=== PATIENT | male | born 1970 | race Caucasian/White ===

== ENCOUNTER 2018-03-13 17:35 | Observation (INO) | payer SELFPAY ==
[2018-03-13 18:59] LABS: Absolute Monocytes 1.1 K/uL (0.1-1.3); Absolute Neutrophil 8.8 K/uL (1.8-8.0); Basophils % 0.4 % (0-1.3); Eosinophils % 0.9 % (0-4.4); Hematocrit 38.6 % (39.6-49.0); Lymphocytes % 8.7 % (15.3-44.8); MCH 30.2 pg (27.0-35.0); MCV 86.6 fL (80-100); MPV 8.3 fL (7.6-11.3); Monocytes % 9.6 % (3.3-12.3); RBC Red Blood Cell Count 4.45 M/uL (4.33-5.43)
[2018-03-13 19:11] LABS: Potassium 4.2 mEq/L (3.6-5.0)
[2018-03-13] MEDS ORDERED: CLINDAMYCIN 600MG/D5W 600 MG/50 ML BAG IV ONE (19:18)
--- NOTE | 2018-03-13 20:16 | ER ---
Nurse's Notes [facility] Name: Vishal Lyons Age: 47 yrs Sex: Male : 1970 Arrival Date: 03/13/2018 Time: 17:37 Bed 27 Private MD: Diagnosis: Cutaneous abscess of right upper limb;Cutaneous abscess of right hand;Cellulitis of right upper limb Presentation: 03/13 17:44 Presenting complaint: Patient states: I got an insect bite on my right wrist on la1 Tuesday and it is getting worse, large abscess noted with cellulitis. Transition of care: patient was not received from another setting of care. Onset of symptoms was March 13, 2018. Initial Sepsis Screen: Does the patient meet any 2 criteria? No. Patient's initial sepsis screen is negative. Does the patient have a suspected source of infection? Yes:. Care prior to arrival: None. 17:44 Method Of Arrival: Ambulatory la1 17:44 Acuity: CESAR 3 la1 Triage Assessment: 18:00 Bite description: bite sustained to right hand and right wrist is from insect by an kr2 unknown animal, animal information: vaccination(s) is not applicable. General: Appears in no apparent distress. uncomfortable, well developed, well nourished, Behavior is calm, cooperative, appropriate for age. Historical: - Allergies: 17:47 No Known Allergies; la1 - Home Meds: 17:47 methadone 100mg Oral tab daily [Active]; Adderall XR 30 mg Oral cp24 1 cap once daily la1 [Active]; Klonopin 2 mg Oral tab 1 tab QID [Active]; - PMHx: 17:47 Diverticulitis; la1 - PSHx: 17:47 colectomy; la1 - Immunization history:: Adult Immunizations up to date. - Social history:: Smoking status: Patient uses tobacco products, smokes one pack cigarettes per day. Screenin:00 Abuse screen: Denies threats or abuse. Denies injuries from another. Nutritional kr2 screening: No deficits noted. Tuberculosis screening: No symptoms or risk factors identified. Fall Risk None identified. Assessment: 18:00 General: Appears in no apparent distress. comfortable, well developed, well nourished, kr2 Behavior is cooperative, anxious. Pain: Complains of pain in right hand and lateral aspect of right hand and right wrist Pain radiates to right arm Pain currently is 10 out of 10 on a pain scale. Quality of pain is described as aching, Pain began gradually, Is continuous, Alleviated by nothing. Aggravated by repositioning. Neuro: Level of Consciousness is awake, alert, obeys commands, Oriented to person, place, time, situation. Cardiovascular: Capillary refill < 3 seconds in bilateral fingers Patient's skin is warm and dry. Respiratory: Airway is patent Respiratory effort is even, unlabored, Respiratory pattern is regular, symmetrical, Breath sounds are clear bilaterally. GI: Abdomen is flat, non-distended, Bowel sounds present X 4 quads. : No signs and/or symptoms were reported regarding the genitourinary system. EENT: Oral mucosa is moist. Derm: Skin is intact, is healthy with good turgor, Skin is pink, warm \T\ dry. Musculoskeletal: Circulation, motion, and sensation intact. 19:00 Reassessment: Patient appears in no apparent distress at this time. Patient and/or kr2 family updated on plan of care and expected duration. Pain level reassessed. Patient is alert, oriented x 3, equal unlabored respirations, skin warm/dry/pink. 20:00 Reassessment: Patient appears in no apparent distress at this time. Patient and/or kr2 family updated on plan of care and expected duration. Pain level reassessed. Patient is alert, oriented x 3, equal unlabored respirations, skin warm/dry/pink. 21:00 Reassessment: No changes from previously documented assessment. kr2 Vital Signs: 17:47 BP 140 / 90; Pulse 85; Resp 16; Temp 97.9; Pulse Ox 100% on R/A; Weight 86.18 kg; la1 Height 6 ft. 0 in. (182.88 cm); 20:00 BP 121 / 80; Pulse 88; Resp 16; Pulse Ox 99% on R/A; kr2 21:04 BP 122 / 85; Pulse 90; Resp 16; Pulse Ox 99% on R/A; kr2 17:47 Body Mass Index 25.77 (86.18 kg, 182.88 cm) la1 ED Course: 17:37 Patient arrived in ED. as 17:45 Triage completed. la1 17:47 Arm band placed on left wrist. la1 17:51 Amita Gan, [facility] is Primary Nurse. kr2 17:52 Kiarra Moya FNP-C is [facility]. kb 17:52 Trae Seaman MD is Attending Physician. kb 18:00 Patient has correct armband on for positive identification. Pulse ox on. NIBP on. Door kr2 closed. Warm blanket given. Head of bed elevated. 18:07 Patient taken to ultrasound. griffin 18:19 Patient moved back from ultrasound. griffin 18:20 US Extrmty Nonvasular Limited In Process Unspecified. EDMS 18:30 Inserted saline lock: 22 gauge in left antecubital area, using aseptic technique. kr2 ,using aseptic technique. Performed by Pao Mcclellan RN Blood collected. 20:16 Rebeka Haines MD is Hospitalizing Provider. kb 21:09 No provider procedures requiring assistance completed. kr2 21:35 Patient admitted, IV remains in place. kr2 Administered Medications: 19:25 Drug: Clindamycin 600 mg Route: IVPB; Infused Over: 30 mins; Site: left antecubital; kr2 20:00 Follow up: Response: No adverse reaction; IV Status: Completed infusion kr2 Outcome: 20:16 Decision to Hospitalize by Provider. kb 21:35 Admitted to Med/surg accompanied by tech, family with patient, via wheelchair, room kr2 215, with chart, Report called to [facility] Blanco 21:35 Condition: stable 21:35 Instructed on the need for admit, Demonstrated understanding of instructions. 21:35 Discharge instructions given to patient. kr2 22:10 Patient left the ED. kr2 Signatures: Dispatcher [employer] EDOH Kiarra Moya FNP-C [employer] DES[employer]-Jasmina Rodgers Lee, RN RN la1 Dupre, Jacques jd Reaves, Karey, RN RN kr2 Corrections: (The following items were deleted from the chart) 20:33 20:00 Response: No adverse reaction; IV Status: Completed infusion kr2 kr2 22:16 22:13 Condition: stable kr2 kr2 22:16 22:13 Admitted to Med/surg accompanied by tech, family with patient, via wheelchair, kr2 room 215, with chart, Report called to [facility] Blanco kr2 22:16 22:13 Instructed on the need for admit, Demonstrated understanding of instructions, kr2 kr2
--- NOTE | 2018-03-13 20:16 | EDPHYS ---
Physician Documentation [facility] Name: Vishal Lyons Age: 47 yrs Sex: Male : 1970 Arrival Date: 03/13/2018 Time: 17:37 Bed 27 Private MD: ED Physician Trae Seaman HPI: 03/13 18:25 This 47 yrs old Male presents to ER via Ambulatory with complaints of Hand kb Swelling, Insect Bite. 18:27 The patient presents with an abscess of the lateral aspect of right hand and right kb wrist, The patient presents with cellulitis of the right wrist and right hand. Description: erythematous, swollen, warm. Onset: The symptoms/episode began/occurred 6 day(s) ago. Possible cause(s): unknown, possible bug bite. Associated signs and symptoms: Pertinent positives: erythema, swelling, Pertinent negatives: discharge, drainage, foreign body sensation, fever, headache, nausea, shortness of breath, vomiting. Modifying factors: the symptoms are alleviated by nothing, the symptoms are aggravated by pressure, touching. Severity of symptoms: At their worst the symptoms were moderate, in the emergency department the symptoms are unchanged. The patient has not experienced similar symptoms in the past. The patient has not recently seen a physician. Pt states he noticed two small spots on his wrist and hand on Tuesday that itched so he scratched them. The areas started swelling up over the weekend and are worse today. 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 . Historical: - Allergies: 17:47 No Known Allergies; la1 - Home Meds: 17:47 methadone 100mg Oral tab daily [Active]; Adderall XR 30 mg Oral cp24 1 cap once daily la1 [Active]; Klonopin 2 mg Oral tab 1 tab QID [Active]; - PMHx: 17:47 Diverticulitis; la1 - PSHx: 17:47 colectomy; la1 - Immunization history:: Adult Immunizations up to date. - Social history:: Smoking status: Patient uses tobacco products, smokes one pack cigarettes per day. ROS: 18:25 Constitutional: Negative for fever, chills, and weight loss, Cardiovascular: Negative kb for chest pain, palpitations, and edema, Respiratory: Negative for shortness of breath, cough, wheezing, and pleuritic chest pain, Abdomen/GI: Negative for abdominal pain, nausea, vomiting, diarrhea, and constipation, MS/Extremity: Negative for injury and deformity, Neuro: Negative for headache, weakness, numbness, tingling, and seizure. 18:25 Skin: Positive for abscess, cellulitis, erythema, swelling, of the lateral aspect of right hand and right wrist. Exam: 18:25 Constitutional: This is a well developed, well nourished patient who is awake, alert, kb and in no acute distress. Head/Face: Normocephalic, atraumatic. Chest/axilla: Normal chest wall appearance and motion. Nontender with no deformity. No lesions are appreciated. Cardiovascular: Regular rate and rhythm with a normal S1 and S2. No gallops, murmurs, or rubs. Normal PMI, no JVD. No pulse deficits. Respiratory: Lungs have equal breath sounds bilaterally, clear to auscultation and percussion. No rales, rhonchi or wheezes noted. No increased work of breathing, no retractions or nasal flaring. Abdomen/GI: Soft, non-tender, with normal bowel sounds. No distension or tympany. No guarding or rebound. No evidence of tenderness throughout. MS/ Extremity: Pulses equal, no cyanosis. Neurovascular intact. Full, normal range of motion. Neuro: Awake and alert, GCS 15, oriented to person, place, time, and situation. Cranial nerves II-XII grossly intact. Motor strength 5/5 in all extremities. Sensory grossly intact. Cerebellar exam normal. Normal gait. 18:25 Skin: abscess, that is moderate sized, of the lateral aspect of right hand and right wrist, with fluctuance, with induration, with surrounding cellulitis, that is moderate. Vital Signs: 17:47 BP 140 / 90; Pulse 85; Resp 16; Temp 97.9; Pulse Ox 100% on R/A; Weight 86.18 kg; la1 Height 6 ft. 0 in. (182.88 cm); 20:00 BP 121 / 80; Pulse 88; Resp 16; Pulse Ox 99% on R/A; kr2 21:04 BP 122 / 85; Pulse 90; Resp 16; Pulse Ox 99% on R/A; kr2 17:47 Body Mass Index 25.77 (86.18 kg, 182.88 cm) la1 MDM: 17:52 Patient medically screened. kb 18:25 Data reviewed: vital signs, nurses notes. Data interpreted: Pulse oximetry: on room air kb is 100 %. Interpretation: normal. 20:09 Counseling: I had a detailed discussion with the patient and/or guardian regarding: the kb historical points, exam findings, and any diagnostic results supporting the discharge/admit diagnosis, lab results, radiology results, the need for further work-up and treatment in the hospital. Physician consultation: Alvin Eric MD was contacted at 20:10, regarding consult, patient's condition, and will see patient in inpatient room. 20:16 Physician consultation: Rebeka Haines MD was contacted at 20:16, regarding admission, kb to the medical/surgical unit. patient's condition, and will see patient in ED, shortly. 03/13 18:01 Order name: CBC with Diff; Complete Time: 19:07 kb 03/13 18:01 Order name: Basic Metabolic Panel; Complete Time: 19:15 kb 03/13 18:01 Order name: Blood Culture Adult (2) kb 03/13 20:07 Order name: UDS; Complete Time: 21:05 kb 03/13 21:08 Order name: Urine Dipstick--Ancillary (enter results) em1 03/13 21:11 Order name: Urine Dipstick-Ancillary; Complete Time: 21:20 EDMS 03/13 18:01 Order name: IV Start; Complete Time: 19:25 kb 03/13 18:01 Order name: US Extrmty Nonvasular Limited; Complete Time: 20:25 kb 03/13 20:20 Order name: CONS Physician Consult EDMS Administered Medications: 19:25 Drug: Clindamycin 600 mg Route: IVPB; Infused Over: 30 mins; Site: left antecubital; kr2 20:00 Follow up: Response: No adverse reaction; IV Status: Completed infusion kr2 Disposition: 03/14 10:04 Co-signature as Attending Physician, Trae Seaman MD. rn Disposition: 03/13/18 20:16 Hospitalization ordered by Rebeka Haines for Observation. Preliminary diagnosis are Cutaneous abscess of right upper limb, Cutaneous abscess of right hand, Cellulitis of right upper limb. - Bed requested for Telemetry/MedSurg (observation). - Status is Observation. kr2 - Condition is Stable. - Problem is new. - Symptoms are unchanged. UTI on Admission? No Signatures: Dispatcher [employer] EDKiarra Villanueva, Elena Moreno, RN RN Trae Wu MD MD rn Attema, Lee, RN RN la1 Amita Gan RN RN kr2
--- NOTE | 2018-03-13 20:25 | RAD REPORT ---
EXAM DESCRIPTION: US - Extremity Nonvascular Limited - 03/13/2018 6:24 pm CLINICAL HISTORY: Soft tissue swelling, pain, redness COMPARISON: None. FINDINGS: In the area of clinical concern there is a 3.5 x 2.7 x 0.8 centimeter hypoechoic collectio n. Surrounding fatty tissues are edematous. In the acute clinical setting this is most likely an absc ess. Old hematoma is possible but unlikely given the set of clinical findings. IMPRESSION: Approximately 3.5 centimeter abscess is present 4 mm deep to the skin surface at the are a of clinical concern.
[2018-03-13 21:01] LABS: Barbiturates NEGATIVE; Benzodiazepines POSITIVE; Cocaine NEGATIVE; Opiates NEGATIVE; Phencyclidine NEGATIVE; THC Cannibis POSITIVE
[2018-03-13 21:04] LABS: METHAMPHETAM POSITIVE
--- NOTE | 2018-03-13 21:05 | P.HP ---
Certification for Inpatient Patient admitted to: Observation With expected LOS: <2 Midnights Practitioner: I am a practitioner with admitting privileges, knowledge of patient current condition, hospital course, and medical plan of care. 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 He states that about 5 days ago was bitten by an insect in his right hand. After that, his hand got progressively swollen and red associated with severe pain. He denied fever or chills. Lab work remarkable for elevated WBC 11K, no fever. Right hand US shows approximately 3.5 centimeter abscess present 4 mm deep to the skin surface. Drug screen significant for benzodiazepines, amphetamines and THC. Allergies No Known Allergies Allergy (Verified 11/02/12 01:30) Home Medications: Clonazepam [Klonopin] 1 mg PO BID 11/02/12 Methadone HCl [Methadone HCl*] 100 mg PO DAILY 11/02/12 Metoprolol Tartrate [Lopressor] 50 mg PO DAILY 11/02/12 Ciprofloxacin HCl [Cipro] 500 mg PO BID #14 tablet 12/25/12 Hydrocodone 10/APAP 325 [Burns 10/325*] 1 each PO Q6HP PRN #0 tab 12/25/12 Metronidazole [Flagyl] 250 mg PO BID #14 tablet 12/25/12 - Past Medical/Surgical History Diabetic: No -: HTN -: diverticulosis -: hemicolectomy - Family History Family History: Reviewed- Non-Contributory - Social History Smoking Status: Current every day smoker Counseled patient to stop smoking for: less than 10 minutes Smoking therapy provided: Yes Patient receptive to therapy: Yes Alcohol use: Yes CD- Drugs: Yes Caffeine use: No Place of Residence: Home Review of Systems 10-point ROS is otherwise unremarkable Physical Examination - Physical Exam General: Alert, In no apparent distress HEENT: Atraumatic, PERRLA, Mucous membr. moist/pink, EOMI, Sclerae nonicteric Neck: Supple, 2+ carotid pulse no bruit, No LAD, Without JVD or thyroid abnormality Respiratory: Clear to auscultation bilaterally, Normal air movement Cardiovascular: Regular rate/rhythm, Normal S1 S2 Gastrointestinal: Normal bowel sounds, No tenderness Musculoskeletal: No tenderness Integumentary: Tenderness/swelling (right hand), Erythema (right hand), Warmth ( right hand) Neurological: Normal gait, Normal speech, Normal strength at 5/5 x4 extr, Normal tone, Normal affect Lymphatics: No axilla or inguinal lymphadenopathy - Studies Laboratory Data (last 24 hrs) 03/13/18 18:38: Sodium 142, Potassium 4.2, BUN 19, Creatinine 1.05, Glucose 84 03/13/18 18:38: WBC 11.0 H, Hgb 13.5 L, Hct 38.6 L, Plt Count 206 Assessment and Plan - Problems (Diagnosis) (1) Abscess of right hand Current Visit: Yes Status: Acute (2) Cellulitis Current Visit: Yes Status: Acute Qualifiers: Site of cellulitis: extremity Site of cellulitis of extremity: upper extremity Laterality: right Qualified Code(s): L03.113 - Cellulitis of right upper limb (3) HTN (hypertension) Current Visit: Yes Status: Acute Qualifiers: Hypertension type: essential hypertension Qualified Code(s): I10 - Essential (primary) hypertension (4) Tobacco abuse Current Visit: Yes Status: Acute - Plan Mr Lyons will be admitted to the hospital due to right hand cellulitis/ abscess. Dr Eric was consulted and he is planning to do I&D in AM. Will continue with empiric Vancomycin and Zosyn IV. No signs of sepsis at the moment. Will order methadone for pain. - Advance Directives Does patient have a Living Will: No Does patient have a Durable POA for Healthcare: No - Code Status/Comfort Care Code Status Assessed: Yes Code Status: Full Code
[2018-03-13 21:11] LABS: Urine Blood NEGATIVE (NEG); Urine Glucose NEGATIVE (NEG); Urine Protein TRACE (NEG); Urine Specific Gravity >1.030 (1.005-1.030); Urine pH 5.5 (5.0-7.0)
[2018-03-13] MEDS ORDERED: ACETAMINOPHEN 500 MG TAB PO PRN (21:23)
[2018-03-13] MEDS ORDERED: METHADONE HCL 10 MG TAB PO PRN (21:23)
[2018-03-13] MEDS ORDERED: NICOTINE 21 MG/PAT TD PRN (21:23)
[2018-03-13] MEDS ORDERED: ALPRAZOLAM 0.25 MG TABLET PO PRN (21:23)
[2018-03-13] MEDS ORDERED: ONDANSETRON 4 MG/2 ML VIAL IV PRN (21:23)
[2018-03-13] MEDS ORDERED: NA CHLORIDE 0.9% 1,000 ML IV SCH (21:23)
[2018-03-13 21:51] VITALS: BMI 25.2
[2018-03-13] MEDS ORDERED: NA CHLORIDE 0.9% 500 ML ONE (22:18)
[2018-03-13] MEDS ORDERED: VANCOMYCIN 1 GM/VIAL ONE (22:25)
[2018-03-13] MEDS: VANCOMYCIN 1.5 GM in NA CHLORIDE 0.9% 500 ML IVPB SCH (22:53)
[2018-03-13] MEDS: METHADONE HCL 10 MG TAB PO SCH (23:15)
[2018-03-14] MEDS: PIPER/TAZO/NS 3.375gm 3.375 GM/100 ML BAG IVPB SCH ×2 (01:00→08:49)
[2018-03-14] MEDS ORDERED: PIPERACIL/TAZO 3.375 GM VIAL IV ONE (01:49)
[2018-03-14] MEDS ORDERED: NA CHLORIDE 0.9% 100 ML ONE (01:51)
[2018-03-14 05:43] LABS: BUN Blood Urea Nitrogen 12 mg/dL (6-20); Bicarbonate 24 mEq/L (21-31); Glucose Level 89 mg/dL (65-120); Magnesium 1.5 mg/dL (1.8-2.5); Potassium 3.9 mEq/L (3.6-5.0); Sodium Level 136 mEq/L (135-145)
[2018-03-14 06:04] LABS: Absolute Lymphocytes (CBC) 1.4 K/uL (0.7-4.9); Absolute Monocytes 1.7 K/uL (0.1-1.3); Absolute Neutrophil 10.6 K/uL (1.8-8.0); Basophils % 0.3 % (0-1.3); Eosinophils % 0.6 % (0-4.4); Hematocrit 38.2 % (39.6-49.0); MCH 28.6 pg (27.0-35.0); MCV 87.4 fL (80-100); MPV 9.2 fL (7.6-11.3); Monocytes % 12.6 % (3.3-12.3); RBC Red Blood Cell Count 4.36 M/uL (4.33-5.43)
[2018-03-14] MEDS ORDERED: Magnesium Sulfate 2gm IVPB 2 G/50 ML BAG IV ONE (06:21)
[2018-03-14] MEDS ORDERED: KCL 20 MEQ/100 mL IVPB 20 MEQ/100 ML BAG IV SCH (07:00)
[2018-03-14] MEDS ORDERED: MORPHINE 4 MG/ML SYR IV PRN (08:39)
[2018-03-14] MEDS: METHADONE HCL 10 MG TAB PO SCH (09:00)
[2018-03-14] MEDS ORDERED: METHADONE HCL 40 MG DISPERSIBLE TAB PO SCH (09:00)
[2018-03-14] MEDS ORDERED: PROPOFOL 200 MG/20 ML VIAL IV ONE (09:48)
[2018-03-14] MEDS ORDERED: MIDAZOLAM HCL 2 MG/2 ML INJ ONE (09:48)
[2018-03-14] MEDS ORDERED: LIDOCAINE 2% MPF 5 ML VIAL ONE (09:49)
[2018-03-14] MEDS ORDERED: FENTANYL CITR 100 MCG/2 ML ONE (09:49)
[2018-03-14] MEDS ORDERED: ONDANSETRON 4 MG/2 ML VIAL ONE (09:49)
[2018-03-14] MEDS ORDERED: Ringers Lactate 1,000 ML IV ONE (09:54)
[2018-03-14] MEDS ORDERED: BUPIVACAINE 0.25% PF 10 ML VIAL ONE (10:02)
[2018-03-14] MEDS ORDERED: BUPIVACA 0.25%/EPI 0.0005%/PF 30 ML VIAL ONE (10:02)
[2018-03-14] MEDS: VANCOMYCIN 1.5 GM in NA CHLORIDE 0.9% 500 ML IVPB SCH ×2 (10:56→11:49)
--- NOTE | 2018-03-14 11:27 | P.OP ---
Preoperative diagnosis: Right Forearm and Wrist Abscess Postoperative diagnosis: Right Forearm and Wrist Abscess Primary procedure: Incision and Drainage of Right Forearm and Wrist Abscess Anesthesia: GETA Estimated blood loss: <20cc Specimen: Cultures Findings: 6cm abscess of distal forearm, 3cm abscess of distal wrist / thenar region Complications: None Transferred to: Recovery Room Condition: Good
[2018-03-14] MEDS: MEPERIDINE HCL 50 MG/ML AMP ONE ×4 (11:41→11:56)
[2018-03-14 11:54] VITALS: TEMP 99
[2018-03-14] MEDS ORDERED: MEPERIDINE HCL 50 MG/ML AMP ONE (12:09)
[2018-03-14 12:19] VITALS: O2SAT 99
--- NOTE | 2018-03-14 12:21 | CON ---
Date of Consultation: 03/14/2018 Brief History Of Present Illness: The patient is a 47-year-old male, who presents with jovanna roximately 1-week history of right wrist pain and hand pain. He states that he was doing some attic work and got two small injuries to these regions at which point, he noted that the area became more s wollen, more tender, beginning on Tuesday of last week. He continued to get worse and worse. Redn ess ensued and swelling occurred all the way to the hands, to the fingertips and extended to the prox imal forearm on the right side. He has not had similar episodes before in the past. He has still go od range of motion and minimal tenderness due to tightness with the clenching of his fist he states. He is unsure if this is a bug bite and he is unsure if there is any other inciting events other than possibly having an injury due to a wood or fiberglass, he believes. Past Medical History: Significant for diverticulitis. He has had bilateral ankle fractures as well. Past Surgical History: He has had a sigmoid colectomy in 2012 for diverticulitis. Allergies: NO KNOWN DRUG ALLERGIES. Medications: At home include Klonopin, Adderall and methadone. Family History: Noncontributory. Review of Systems: Other than HPI, he has a mild fever at times, he states, and chills which is one of the reasons he ca me to the emergency room he states. Review of Systems: Other than HPI and the above stated is negative on 10-point review of systems. Physical Examination: Vital Signs: At the time of my examination, his BMI is 25.2. His vital signs are, blood pressure of 140/74, pulse is 81, temperature is 101.2, respiratory rate 18. General: He is awake, alert, and oriented. Psychiatric: He is appropriate, conversive. HEENT: Normocephalic. His sclerae are anicteric. His mucous membranes are moist. His oropharynx i s clear. Neck: Supple. No JVD. Chest: Normal expansion and excursion. Cardiovascular: Regular rate and rhythm. Pulmonary: Clear to auscultation bilaterally. Abdomen: Soft. Well-healed scar evident. Nontender. Extremities: Focused on the right upper extremity, there is swelling from proximal to distal 1/3 of the forearm extending to the hand and fingers. There are 2 what appears to be punctate injuries, 1 o n the volar aspect of the wrist and 1 on the plantar aspect of the hand. These appeared to be superf icial and do not appear to involve deep structures. There are fluctuance consistent with abscesses i n this area. It appears that this was an injury/inoculation site and he has no evidence of compartme nt syndrome. He has no sensorineural deficits in the hand. He has decreased range of motion due to he says tightness of the hand and his hand is significantly swollen. Laboratory Data: Reveals a white blood cell count of 13.8, hemoglobin 12.5, hematocrit 38.2, platele t count is 201, neutrophils are 76%. His sodium 136, potassium 3.9, chloride 105, carbon dioxide 24, BUN 12, creatinine 0.6, glucose is 89, magnesium 1.5. His UA was negative. His tox screen was posi tive for amphetamine, benzodiazepines, and THC. He had imaging performed as well which included an e xtremity ultrasound on 03/13 which is officially read as, in the area of clinical concern, there is a 3.5 x 2.7 x 0.8 cm hypoechoic collection surrounding fatty tissues that are edematous in the acute c linical settings. This is most likely an abscess or hematoma is possible but unlikely given the set of clinical findings the official impression is approximately 3.5 cm abscess present 4 mm deep to the skin surface at the area of clinical concern. Assessment And Plan: 1.This is a 47-year-old male who comes in with signs and symptoms of multiple abscesses of the right wrist, subcutaneous tissues, and hand. I do not believe these involve the deeper structures and the refore, I recommend incision and drainage of the above stated collections. 2.Antibiotic coverage. 3.I have explained the risks, benefits, and alternatives of surgery in this area including but not l imited to bleeding, infection, damage to surrounding tissues, nerve injury, hand dysfunction, need fu rther operations procedures. He agrees to proceed as indicated. In addition I have explained that rafael torres needs to follow up with a hand surgeon immediately upon discharge from here to ensure he is in a pr oper rehab program to ensure that no additional complications arise as he leaves the hospital after h is procedure. He displayed understanding of above-stated plan and agree proceed as indicated. TK/MODL Voice ID: [id number] Report ID: [id number]
[2018-03-14 14:01] VITALS: BP 133/76
--- NOTE | 2018-03-14 16:32 | P.SSS ---
Patient History Date of Service: 03/14/18 Reason for admission: right hand cellulitis History of Present Illness: Mr Lyons is a 47 years old male with history of HTN, diverticulosis, chronic pain medication addiction on recovery phase, under methadone treatment, came to ED due to right hand pain and swelling. He states that about 5 days ago was bitten by an insect in his right hand. After that, his hand got progressively swollen and red associated with severe pain. He denied fever or chills. Lab work remarkable for elevated WBC 11K, no fever. Right hand US shows approximately 3.5 centimeter abscess present 4 mm deep to the skin surface. Drug screen significant for benzodiazepines, amphetamines and THC. Allergies codeine Allergy (Verified 03/13/18 22:07) Hives/Rash No Known Allergies Allergy (Uncoded 03/13/18 22:15) Unknown Home Medications: Clonazepam [Klonopin] 2 mg PO QID 11/02/12 Methadone HCl [Methadone HCl*] 100 mg PO DAILY 11/02/12 Dextroamphetamine/Amphetamine [Adderall Xr 30 mg Capsule] 30 mg PO DAILY - Past Medical/Surgical History Has patient received pneumonia vaccine in the past: No Diabetic: No -: HTN -: Diverticulitis -: Hemicolectomy -: Bilateral Ankle Surgery - Family History Family History: Reviewed- Non-Contributory - Family History Father -: Hypertension, Diabetes Mother -: Heart disease, Hypertension Sister Notes: heart defect as a child - Social History Smoking Status: Current every day smoker Alcohol use: Yes CD- Drugs: Yes Caffeine use: Yes Place of Residence: Home Review of Systems 10-point ROS is otherwise unremarkable Physical Examination - Vital Signs Temperature: 99.0 F Blood Pressure: 133/76 Pulse: 54 Respirations: 18 Pulse Ox (%): 95 - Physical Exam General: Alert, In no apparent distress, Oriented x3 HEENT: Atraumatic Neck: Supple Respiratory: Clear to auscultation bilaterally, Normal air movement Cardiovascular: Regular rate/rhythm, Normal S1 S2 Gastrointestinal: Normal bowel sounds, No tenderness Musculoskeletal: Erythema, Tenderness, Warmth Integumentary: No rashes Neurological: Normal speech, Normal tone Lymphatics: No axilla or inguinal lymphadenopathy - Studies Laboratory Data (last 24 hrs) 03/13/18 18:38: Sodium 142, Potassium 4.2, BUN 19, Creatinine 1.05, Glucose 84 03/13/18 18:38: WBC 11.0 H, Hgb 13.5 L, Hct 38.6 L, Plt Count 206 - Diagnosis (Problem(s)) (1) Cellulitis Onset Date: 03/14/18 Current Visit: Yes Status: Acute Qualifiers: Site of cellulitis: extremity Site of cellulitis of extremity: upper extremity Laterality: right Qualified Code(s): L03.113 - Cellulitis of right upper limb (2) Abscess of right hand Onset Date: 03/14/18 Current Visit: Yes Status: Acute (3) Drug abuse Current Visit: Yes Status: Acute (4) HTN (hypertension) Onset Date: 03/14/18 Current Visit: Yes Status: Acute Qualifiers: Hypertension type: essential hypertension Qualified Code(s): I10 - Essential (primary) hypertension (5) Tobacco abuse Onset Date: 03/14/18 Current Visit: Yes Status: Acute Treatment Summary: Overall during the hospital stay patient remained stable Patient initially admitted to the hospital abscess of the wrist on the right hand side. 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 General surgery was consulted here in the hospital. Patient was taken to the OR for I and D. Patient had I and D done with 6 cm abscess and 3 cm abscess removal from the right wrist. At that time patient did well in the procedure. Recommendation was made to discharge the patient under stable condition give p.o. Bactrim and clindamycin antibiotics. Patient was to pack his wound every day at home. Patient was thought here in the hospital we nursing staff on how to pack his wound at home. Patient does take methadone at home which will be for his pain management. Patient was also asked to follow up with hand surgeon after discharge from here to ensure that patient has been healing properly. Patient was returned to the wound clinic to follow up with Dr. Eric. Patient and family demonstrated understanding and thus was dc Home. - Disposition Disposition: ROUTINE DISCHARGE Condition: GOOD Patient Discharge Instructions: keep hand elevated. - stress ball exercises to hand daily. - daily dressing changes with 1/2" iodoform packing to 2 incisions. - irrigate wounds daily. - follow up with hand surgeon next week Diet: Regular Activity: hand exercises daily as described
--- NOTE | 2018-03-14 22:21 | OP ---
Date of Procedure: 03/14/2018 Surgeon: Alvin Eric MD, Preoperative Diagnosis: Right forearm and wrist abscess in the thenar eminence region. Postoperative Diagnosis: Right forearm and wrist abscess in the thenar eminence region. Procedure Performed: Incision and drainage of right forearm and wrist/thenar abscess. Anesthesia: General endotracheal. Estimated Blood Loss: Less than 20 cc. Specimen: Culture sent for both aerobic and anaerobic. Findings: A 6 cm abscess of the distal forearm near the wrist, on the volar aspect/medial aspect and a 3 cm abscess of the distal wrist region/thenar region. Complications: None. Disposition: Transferred to recovery room in good condition. Procedure In Detail: After informed consent was obtained, the patient was brought to the operating r oom, prepped and draped in the usual sterile fashion. After adequate anesthesia was achieved, a line ar incision was made over the thenar region on the thenar eminence aspect of the posterior hand for a pproximately 1.5 cm. Feculent smelling pus was returned immediately. This was sent for culture at t his time for both aerobic and anaerobic speciation. The cavity was completely digitized until all lo culations were broken up and the area was copiously irrigated until completely clear. Hemostasis was achieved with electrocautery. It was all in the subcutaneous position and the deep planes were all protected. Additional abscess was larger and a 6 cm size of the distal forearm near the wrist region , also on the medial/radial aspect of the wrist. An incision of approximately 3 cm was made and larg e amount of feculent smelling pus was returned here as well. Cultures were sent for this as well in this area and the area was copiously irrigated and digitized until completely clear. All loculations were broken up and the area was copiously irrigated multiple times until completely clear. Hemostas is was achieved with electrocautery. This also contained only within the subcutaneous position. The re was no deep tissue involvement. I then packed both of these incisions with half-inch iodoform pac owen and placed sterile dressing on top. The patient tolerated the procedure without evidence of com plication and transferred to PACU in good condition. All counts were correct at the end of the case. ANNAMARIA/KATHY Voice ID: [id number] Report ID: [id number]
== END 2018-03-14 18:01 | disposition home or self-care (01) ==
LOC: ER 17:35 → ERHOLD 20:17 → 2ND 21:23
PROVIDERS: ADMIT Internal Medicine; ATTEND Internal Medicine
PROC: 0H9DXZZ Drainage of Right Lower Arm Skin, External Approach (ICD-10-PCS; principal; 2018-03-14 11:45)
DX: L02.413 Cutaneous abscess of right upper limb (principal); I10 Essential (primary) hypertension; K57.90 Diverticulosis of intestine, part unspecified, without perforation or abscess without bleeding; F17.210 Nicotine dependence, cigarettes, uncomplicated; F15.10 Other stimulant abuse, uncomplicated; F12.10 Cannabis abuse, uncomplicated
CPT/HCPCS: 36415; 76882; 80048; 80307; 81003; 83735; 85025; 87040; 87070; 87075; 87205; 96365; 99285; G0378; J2175; J2250; J2405; J2543; J3010; J3475; J7030

== ENCOUNTER 2019-07-29 12:35 | Emergency (ER) | payer SELFPAY ==
[2019-07-29] MEDS ORDERED: NA CHLORIDE 0.9% 1,000 ML ONE ×2 (12:59→13:56)
[2019-07-29] MEDS ORDERED: DIAZEPAM 10 MG/2 ML INJ SYRINGE ONE (12:59)
[2019-07-29 13:14] LABS: Absolute Lymphocytes (CBC) 1.4 K/uL (0.7-4.9); Basophils % 0.3 % (0-1.3); Hematocrit 45.5 % (39.6-49.0); Lymphocytes % 15.8 % (15.3-44.8); MPV 8.5 fL (7.6-11.3); RBC Red Blood Cell Count 5.17 M/uL (4.33-5.43)
[2019-07-29 13:15] LABS: Arterial Blood Carboxyhemoglob 0.8 % (0-1.5); Blood Gas Oxyhemoglobin 95.3 % (94-97); Blood O2 Saturation 96.9 % (92-98.5)
[2019-07-29 13:32] LABS: ALT/SGPT 42 U/L (12-78); AST/SGOT 25 U/L (15-37); Albumin 4.5 g/dL (3.4-5.0); Alkaline Phosphatase 75 U/L (45-117); BUN Blood Urea Nitrogen 17 mg/dL (7-18); Bicarbonate 28 mmol/L (21-32); Bilirubin Direct 0.1 mg/dL (0-0.2); Bilirubin Total 0.5 mg/dL (0.2-1.0); Glucose Level 123 mg/dL (74-106); Magnesium 1.7 mg/dL (1.8-2.4); NT PRO-BNP 116 pg/mL (<125); Potassium 4.3 mmol/L (3.5-5.1); Protein, Total 7.8 g/dL (6.4-8.2); Protime INR 1.02; Sodium Level 141 mmol/L (136-145); Troponin (Emerg Dept Use Only) < 0.02 ng/mL (0.0-0.045)
--- NOTE | 2019-07-29 14:41 | ER ---
Nurse's Notes [facility] Name: Vishal Lyons Age: 48 yrs Sex: Male : 1970 Arrival Date: 07/29/2019 Time: 12:37 Bed 26 Private MD: Diagnosis: Withdrawal symptoms Presentation: 07/29 12:37 Presenting complaint: EMS states: Pt takes Methadone daily. He hasn't taken one since ca1 0630 am yesterday and now is experiencing withdrawal symptoms. Pt c/o nausea. Pt tachycardic at 130. Transition of care: [facility]. Onset of symptoms was July 29, 2019. Risk Assessment: Do you want to hurt yourself or someone else? Patient reports no desire to harm self or others. Initial Sepsis Screen: Does the patient meet any 2 criteria? No. Patient's initial sepsis screen is negative. Does the patient have a suspected source of infection? No. Patient's initial sepsis screen is negative. Care prior to arrival: Medication(s) given: zofran 4 mg, Glucose check: 124. 12:37 Method Of Arrival: EMS: [facility] ca1 12:37 Acuity: CESAR 3 ca1 12:55 Acuity: CESAR 2 la1 Historical: - Allergies: 12:42 No Known Allergies; ca1 - Home Meds: 12:42 Methadone Oral [Active]; ca1 - PMHx: 12:42 Diverticulitis; Hypertension; ca1 - PSHx: 12:42 Colon Surgery; ca1 - Immunization history:: Adult Immunizations not up to date. - Social history:: Smoking status: Patient uses tobacco products, smokes one-half pack cigarettes per day. - Ebola Screening: : Patient negative for fever greater than or equal to 101.5 degrees Fahrenheit, and additional compatible Ebola Virus Disease symptoms Patient denies exposure to infectious person Patient denies travel to an Ebola-affected area in the 21 days before illness onset No symptoms or risks identified at this time. Screenin:45 Abuse screen: Denies threats or abuse. Denies injuries from another. Nutritional ca1 screening: No deficits noted. Tuberculosis screening: No symptoms or risk factors identified. Fall Risk IV access (20 points). Assessment: 12:45 General: Appears in no apparent distress. uncomfortable, Behavior is agitated, anxious. ca1 General:. Pain: Complains of pain in low back area Pain currently is 5 out of 10 on a pain scale. Neuro: Level of Consciousness is awake, alert, obeys commands, Oriented to person, place, time, situation. Cardiovascular: Heart tones S1 S2 present Capillary refill < 3 seconds Pulses are all present. Rhythm is sinus tachycardia. Respiratory: Airway is patent Respiratory effort is even, unlabored, Respiratory pattern is regular, symmetrical, Breath sounds are clear bilaterally. GI: Abdomen is flat, non-distended, Bowel sounds present X 4 quads. Abd is soft and non tender X 4 quads. : No deficits noted. No signs and/or symptoms were reported regarding the genitourinary system. EENT: No deficits noted. No signs and/or symptoms were reported regarding the EENT system. Derm: Skin is intact, is healthy with good turgor, Skin is diaphoretic, Skin is pink, Skin temperature is cool. Musculoskeletal: Circulation, motion, and sensation intact. Capillary refill < 3 seconds, Range of motion: intact in all extremities. 13:15 Reassessment: Patient appears in no apparent distress at this time. General: Appears in ca1 no apparent distress. comfortable, Behavior is calm, cooperative, appropriate for age. Derm: Skin is pink, warm \T\ dry. 14:04 Reassessment: Patient appears in no apparent distress at this time. Patient and/or ca1 family updated on plan of care and expected duration. Pain level reassessed. Patient is alert, oriented x 3, equal unlabored respirations, skin warm/dry/pink. 14:48 Reassessment: Patient appears in no apparent distress at this time. Patient is alert, ca1 oriented x 3, equal unlabored respirations, skin warm/dry/pink. Patient states feeling better. Vital Signs: 12:42 BP 161 / 107; Pulse 128; Resp 14; Temp 99(O); Pulse Ox 84% on R/A; Weight 90.72 kg (R); ca1 Height 6 ft. 0 in. (182.88 cm) (R); Pain 5/10; 12:45 Pulse Ox 100% on 2 lpm NC; ca1 13:15 BP 126 / 84; Pulse 97; Resp 17 S; Pulse Ox 100% 2 lpm ; ca1 14:04 BP 131 / 91; Pulse 86; Resp 20; Pulse Ox 100% on 2 lpm NC; ca1 14:48 BP 146 / 83; Pulse 84; Resp 19 S; Temp 98.6(O); Pulse Ox 100% on R/A; ca1 12:42 Body Mass Index 27.12 (90.72 kg, 182.88 cm) ca1 ED Course: 12:37 Patient arrived in ED. ca1 12:41 Triage completed. ca1 12:42 Let[facility]-C [facility]. snw 12:42 aRj Bustillo MD is Attending Physician. snw 12:42 Arm band placed on right wrist. ca1 12:45 Patient has correct armband on for positive identification. Bed in low position. Call ca1 light in reach. Side rails up X2. alarm security or surveillance monitor on. Pulse ox on. NIBP on. Warm blanket given. 12:45 No provider procedures requiring assistance completed. ca1 12:57 Yamilet Felipe, RN is Primary Nurse. ca1 13:12 Initial lab(s) drawn, by mt, sent to lab. Inserted saline lock: 20 gauge in left lt1 antecubital area, using aseptic technique. 13:12 Inserted saline lock: 18 gauge in right antecubital area, using aseptic technique. lt1 13:16 XRAY Chest (1 view) In Process Unspecified. EDMS 14:49 IV discontinued, intact, bleeding controlled, No redness/swelling at site. Pressure ca1 dressing applied. Administered Medications: 13:02 Drug: Valium 10 mg Route: IVP; Site: left antecubital; la1 13:58 Follow up: Response: No adverse reaction; Marked relief of symptoms ca1 13:04 Drug: NS 0.9% 1000 ml Route: IV; Rate: 1 bolus; Site: left antecubital; ca1 13:57 Follow up: Response: No adverse reaction; IV Status: Completed infusion; IV Intake: ca1 1000ml 13:57 Drug: NS 0.9% 1000 ml Route: IV; Rate: 1 bolus; Site: left antecubital; ca1 14:48 Follow up: Response: No adverse reaction; IV Status: Completed infusion; IV Intake: ca1 1000ml Intake: 13:57 IV: 1000ml; Total: 1000ml. ca1 14:48 IV: 1000ml; Total: 2000ml. ca1 Outcome: 14:40 Discharge ordered by . snw 14:49 Discharged to Law Enforcement ca1 14:49 Condition: stable 14:49 Discharge instructions given to patient, police, Instructed on discharge instructions, follow up and referral plans. Demonstrated understanding of instructions, follow-up care. 14:49 Patient left the ED. ca1 Signatures: Dispatcher [employer] EDMS Leti Thapa, OTR FLATBED DRIVER-C OTR FLATBED DRIVER-Csnw Tenzin Vilchis RN RN la1 Yamilet Felipe RN RN ca1 [place], [place] [id number]
--- NOTE | 2019-07-29 14:42 | EDPHYS ---
Physician Documentation [facility] Name: Vishal Lyons Age: 48 yrs Sex: Male : 1970 Arrival Date: 07/29/2019 Time: 12:37 Bed 26 Private MD: MARIANO Physician Raj Bustillo HPI: 07/29 17:53 This 48 yrs old Male presents to ER via EMS with complaints of feel like I snw might have a seizure. 17:53 Pt takes daily Methadone for opiate addiction. Pt incarcerated and did not get dose. + snw shaky, sweaty, panicky. Onset: The symptoms/episode began/occurred suddenly. Severity of symptoms: At their worst the symptoms were severe. It is unknown whether or not the patient has had similar symptoms in the past. It is unknown whether or not the patient has recently seen a physician. Historical: - Allergies: 12:42 No Known Allergies; ca1 - Home Meds: 12:42 Methadone Oral [Active]; ca1 - PMHx: 12:42 Diverticulitis; Hypertension; ca1 - PSHx: 12:42 Colon Surgery; ca1 - Immunization history:: Adult Immunizations not up to date. - Social history:: Smoking status: Patient uses tobacco products, smokes one-half pack cigarettes per day. - Ebola Screening: : Patient negative for fever greater than or equal to 101.5 degrees Fahrenheit, and additional compatible Ebola Virus Disease symptoms Patient denies exposure to infectious person Patient denies travel to an Ebola-affected area in the 21 days before illness onset No symptoms or risks identified at this time. ROS: 17:53 Eyes: Negative for injury, pain, redness, and discharge, ENT: Negative for injury, snw pain, and discharge, Neck: Negative for injury, pain, and swelling, Cardiovascular: Negative for chest pain, palpitations, and edema, Respiratory: Negative for shortness of breath, cough, wheezing, and pleuritic chest pain, Abdomen/GI: Negative for abdominal pain, nausea, vomiting, diarrhea, and constipation, Back: Negative for injury and pain, : Negative for injury, bleeding, discharge, and swelling, MS/Extremity: Negative for injury and deformity, Skin: Negative for injury, rash, and discoloration, Neuro: Negative for headache, weakness, numbness, tingling, and seizure. 17:53 Constitutional: Positive for body aches, chills, malaise. 17:53 Psych: Positive for anxiety, drug dependence. Exam: 17:53 Head/Face: Normocephalic, atraumatic. Eyes: Pupils equal round and reactive to light, snw extra-ocular motions intact. Lids and lashes normal. Conjunctiva and sclera are non-icteric and not injected. Cornea within normal limits. Periorbital areas with no swelling, redness, or edema. ENT: Nares patent. No nasal discharge, no septal abnormalities noted. Tympanic membranes are normal and external auditory canals are clear. Oropharynx with no redness, swelling, or masses, exudates, or evidence of obstruction, uvula midline. Mucous membranes moist. Neck: Trachea midline, no thyromegaly or masses palpated, and no cervical lymphadenopathy. Supple, full range of motion without nuchal rigidity, or vertebral point tenderness. No Meningismus. Chest/axilla: Normal chest wall appearance and motion. Nontender with no deformity. No lesions are appreciated. 17:53 Abdomen/GI: Soft, non-tender, with normal bowel sounds. No distension or tympany. No guarding or rebound. No evidence of tenderness throughout. Back: No spinal tenderness. No costovertebral tenderness. Full range of motion. MS/ Extremity: Pulses equal, no cyanosis. Neurovascular intact. Full, normal range of motion. 17:53 Constitutional: The patient appears awake, anxious, diaphoretic, in obvious distress, restless, uncomfortable. 17:53 Cardiovascular: Rate: tachycardic, Rhythm: regular, Pulses: no pulse deficits are appreciated, Edema: is not appreciated. 17:53 Respiratory: the patient does not display signs of respiratory distress, Respirations: shallow respirations, tachypnea, Breath sounds: are clear throughout. 17:53 Skin: Appearance: Moisture: diaphoretic, flushing, that are mild. Vital Signs: 12:42 BP 161 / 107; Pulse 128; Resp 14; Temp 99(O); Pulse Ox 84% on R/A; Weight 90.72 kg (R); ca1 Height 6 ft. 0 in. (182.88 cm) (R); Pain 5/10; 12:45 Pulse Ox 100% on 2 lpm NC; ca1 13:15 BP 126 / 84; Pulse 97; Resp 17 S; Pulse Ox 100% 2 lpm ; ca1 14:04 BP 131 / 91; Pulse 86; Resp 20; Pulse Ox 100% on 2 lpm NC; ca1 14:48 BP 146 / 83; Pulse 84; Resp 19 S; Temp 98.6(O); Pulse Ox 100% on R/A; ca1 12:42 Body Mass Index 27.12 (90.72 kg, 182.88 cm) ca1 MDM: 12:47 Patient medically screened. addison 17:57 Data reviewed: vital signs, nurses notes. Data interpreted: Pulse oximetry: on room air snw is 100 %. Interpretation: normal. Counseling: I had a detailed discussion with the patient and/or guardian regarding: the historical points, exam findings, and any diagnostic results supporting the discharge/admit diagnosis, lab results, radiology results, the need for outpatient follow up, to return to the emergency department if symptoms worsen or persist or if there are any questions or concerns that arise at home. Special discussion: Based on the history and exam findings, there is no indication for further emergent testing or inpatient evaluation. I discussed with the patient/guardian the need to see the buildings painter for further evaluation of the symptoms. I discussed with the patient/guardian the need to see the primary care provider for further evaluation of the symptoms. 07/29 12:51 Order name: Basic Metabolic Panel; Complete Time: 13:39 snw 07/29 12:51 Order name: CBC with Diff; Complete Time: 13:23 snw 07/29 12:51 Order name: LFT's; Complete Time: 13:39 snw 07/29 12:51 Order name: Magnesium; Complete Time: 13:39 snw 07/29 12:51 Order name: NT PRO-BNP; Complete Time: 13:39 snw 07/29 12:51 Order name: PT-INR; Complete Time: 13:39 snw 07/29 12:51 Order name: Troponin (emerg Dept Use Only); Complete Time: 13:39 snw 07/29 12:51 Order name: XRAY Chest (1 view) snw 07/29 12:51 Order name: EKG; Complete Time: 12:54 snw 07/29 12:51 Order name: Cardiac monitoring; Complete Time: 13:07 snw 07/29 12:51 Order name: ABG; Complete Time: 13:31 snw 07/29 12:51 Order name: EKG - Nurse/Tech; Complete Time: 13:07 snw 07/29 12:51 Order name: IV Saline Lock; Complete Time: 13:07 snw 07/29 12:51 Order name: Labs collected and sent; Complete Time: 13:07 snw 07/29 12:51 Order name: O2 Per Protocol; Complete Time: 13:08 snw 07/29 12:51 Order name: O2 Sat Monitoring; Complete Time: 13:08 snw Administered Medications: 13:02 Drug: Valium 10 mg Route: IVP; Site: left antecubital; la1 13:58 Follow up: Response: No adverse reaction; Marked relief of symptoms ca1 13:04 Drug: NS 0.9% 1000 ml Route: IV; Rate: 1 bolus; Site: left antecubital; ca1 13:57 Follow up: Response: No adverse reaction; IV Status: Completed infusion; IV Intake: ca1 1000ml 13:57 Drug: NS 0.9% 1000 ml Route: IV; Rate: 1 bolus; Site: left antecubital; ca1 14:48 Follow up: Response: No adverse reaction; IV Status: Completed infusion; IV Intake: ca1 1000ml Disposition: 07/30 09:20 Co-signature as Attending Physician, Raj Bustillo MD I agree with the assessment and addison plan of care. Disposition: 07/29/19 14:40 Discharged to Home. Impression: Withdrawal symptoms. - Condition is Stable. - Discharge Instructions: Opioid Withdrawal. - Medication Reconciliation Form, Thank You Letter, Antibiotic Education, Prescription Opioid Use form. - Follow up: Private Physician; When: 1 - 2 days; Reason: Recheck today's complaints, Continuance of care, Re-evaluation by your physician. Follow up: Emergency Department; When: As needed; Reason: Worsening of condition. Signatures: Dispatcher [employer] Raj Corbin MD MD cha Therrien, Shelly, DOMONIQUE-Chanelle OFFICE TECHNICIAN-Tenzin Kumar RN RN la1 Yamilet Felipe RN RN ca1 Corrections: (The following items were deleted from the chart) 07/29 14:49 14:40 07/29/2019 14:40 Discharged to Home. Impression: Withdrawal symptoms. Condition ca1 is Stable. Forms are Medication Reconciliation Form, Thank You Letter, Antibiotic Education, Prescription Opioid Use. Follow up: Private Physician; When: 1 - 2 days; Reason: Recheck today's complaints, Continuance of care, Re-evaluation by your physician. Follow up: Emergency Department; When: As needed; Reason: Worsening of condition. snw
--- NOTE | 2019-07-29 14:57 | RAD REPORT ---
EXAM DESCRIPTION: Eve Single View07/29/2019 1:15 pm CLINICAL HISTORY: Chest pain COMPARISON: none FINDINGS: The lungs appear clear of acute infiltrate. The heart is normal size IMPRESSION: No acute abnormalities displayed
[2019-07-29 14:59] VITALS: O2SAT 100
[2019-07-29 15:03] VITALS: BP 146/83; TEMP 98.6
--- NOTE | 2019-07-30 08:38 | EKG ---
Test Date: 2019-07-29 Test Time: 13:06:23 Commercial Engineer: ADALID MEASUREMENT RESULTS: Intervals: Rate: 100 CO: 174 QRSD: 124 QT: 360 QTc: 464 [place]: P: 76 CO: 174 QRS: 59 T: 58 INTERPRETIVE STATEMENTS: Normal sinus rhythm Right bundle branch block Abnormal ECG Compared to ECG 08/26/2014 08:52:01 Right bundle-branch block now present Sinus bradycardia no longer present ST (T wave) deviation no longer present Possible ischemia no longer present Electronically Signed On 07-30-19 08:36:09 CDT by Hugh Almanza
== END 2019-07-29 14:49 | disposition home or self-care (01) ==
LOC: ER 12:35
DX: F11.23 Opioid dependence with withdrawal (principal)
CPT/HCPCS: 36415; 71045; 80048; 80076; 82805; 83735; 83880; 84484; 85025; 85610; 93005; 96361; 96374; 99284; J3360; J7030